=== PATIENT | male | born 1965 | race Caucasian/White ===

== ENCOUNTER 2024-07-14 17:22 | Emergency (ER) | payer OTHER ==
[~2024-07-14] VITALS: Ht 185.4 cm; Wt 99.8 kg
[2024-07-14 17:45] VITALS: BP 162/88; TEMP 98.2; O2SAT 98
[2024-07-14] MEDS ORDERED: FLUORESCEIN SODIUM OPHTH 1 EA STRIP ONE (17:51)
[2024-07-14] MEDS ORDERED: TETRAcaine 5 ML BOTTLE ONE (17:52)
[2024-07-14] MEDS ORDERED: CIPR2.5D14 LEFTEYE (18:53)
== END 2024-07-14 19:08 | disposition home or self-care (01) ==
LOC: ER 17:22
DX: S05.02XA Injury of conjunctiva and corneal abrasion without foreign body, left eye, initial encounter (principal); H57.8A2 Foreign body sensation, left eye; I10 Essential (primary) hypertension; E11.9 Type 2 diabetes mellitus without complications; X58.XXXA Exposure to other specified factors, initial encounter; Y93.89 Activity, other specified; Y92.488 Other paved roadways as the place of occurrence of the external cause; Y99.8 Other external cause status